=== PATIENT | female | born 1990 | race Caucasian/White ===

== ENCOUNTER → 2016-11-13 15:40 | Inpatient (IN) | payer MEDICAID ==
[2016-11-11 15:16] VITALS: BP 116/85
[2016-11-11] MEDS: D5%-LACTATED RINGERS 1,000 ML IV SCH ×2 (15:34→23:34)
[2016-11-11] MEDS: LACTATED RINGERS 1,000 ML IV SCH ×2 (15:59→23:34)
[2016-11-11 20:42] VITALS: BP 104/55
[2016-11-12] MEDS: OXYTOCIN 30U/ 0.9% NaCL 500ML 500 ML IV SCH ×8 (01:08→11:08)
[2016-11-12 03:10] VITALS: BP 108/57
[2016-11-12] MEDS: OXYcodone/APAP 5/325MG TABLET PO PRN ×3 (06:18→21:00)
[2016-11-12 07:30] VITALS: BP 117/69
[2016-11-12] MEDS: DOCUSATE 100 MG CAPSULE PO PRN ×2 (08:10→21:00)
[2016-11-12] MEDS: PRENATAL VIT/IRON/FA 1 EACH TABLET PO SCH (08:10)
[2016-11-12] MEDS: IBUPROFEN 800 MG TABLET PO PRN ×2 (08:10→16:09)
[2016-11-12 11:30] VITALS: BP 115/73
[2016-11-12 15:30] VITALS: BP 103/58
[2016-11-12 20:00] VITALS: BP 117/62
[2016-11-12 23:35] VITALS: BP 104/56
[~2016-11-13] VITALS: Ht 165.1 cm; Wt 77.7 kg
[2016-11-13] MEDS: OXYcodone/APAP 5/325MG TABLET PO PRN ×2 (01:49→10:59)
[2016-11-13] MEDS: IBUPROFEN 800 MG TABLET PO PRN ×2 (01:50→10:59)
[2016-11-13 06:20] VITALS: BP 102/54
[2016-11-13] MEDS: PRENATAL VIT/IRON/FA 1 EACH TABLET PO SCH (10:59)
[2016-11-13] MEDS: DOCUSATE 100 MG CAPSULE PO PRN (10:59)
[~2016-11-13 15:40] MED LIST: ACETAMINOPHEN 325 MG TABLET PO PRN; DIPH,PERTUSS(ACELL),TET VAC/PF NC IM-VACC PRN; DOCU-30 PO; FENTANYL PF 100 MCG/2ML IV PRN; FENTANYL PF 100 MCG/2ML IVPush ONE; FENTANYL PF 100 MCG/2ML IVPush PRN; FENTANYL/BUPIV./NS/PF 250 ML EPIDCONT ONE; FENTANYL/BUPIV./NS/PF 250 ML EPIDCONT SCH; FERR325T20 PO; IBUP800T PO; IBUPROFEN 600 MG TABLET ONE; IBUPROFEN 600 MG TABLET PO PRN; LACTATED RINGERS 1,000 ML IV SCH; LACTATED RINGERS 1,000 ML IVBOLUS PRN; LIDOCAINE 1%, 20ML ONE; LIDOCAINE/PF 1.5%-EPI 1:200K, 30ML ONE; MAGNESIUM HYDROXIDE 8%, 30ML UDC PO PRN; METHYLERGONOVINE 0.2 MG/ML IM PRN; MISOPROSTOL 200 MCG TABLET ONE; MISOPROSTOL 200 MCG TABLET PR ONE; NEWBORN KIT ONE; ONDANSETRON 2MG/ML, 2ML IV PRN; ONDANSETRON 2MG/ML, 2ML IVPush PRN; OXYC-302 PO; OXYTOCIN 10 UNITS/ML, 1ML IM PRN; OXYTOCIN 30U/ 0.9% NaCL 500ML 500 ML IV ONE; OXYTOCIN 30U/ 0.9% NaCL 500ML 500 ML IV PRN; OXYTOCIN 30U/ 0.9% NaCL 500ML 500 ML ONE; OXYcodone/APAP 5/325MG TABLET PO PRN; TERBUTALINE 1 MG/ML, 1ML IVPush PRN
== END | disposition home or self-care (01) | DRG 775 ==
LOC: UNDOADMIN 01-17 07:33 → LDIP 01-17 07:33 → 2NW 11-12 02:50
PROVIDERS: ADMIT Obstetrics & Gynecology; ATTEND Obstetrics & Gynecology
PROC: 10E0XZZ Delivery of Products of Conception, External Approach (ICD-10-PCS; principal; 2016-11-11)
PROC: 3E0R3CZ (ICD-10-PCS; 2016-11-11)
PROC: 00HU33Z Insertion of Infusion Device into Spinal Canal, Percutaneous Approach (ICD-10-PCS; 2016-11-11)
DX: O48.0 Post-term pregnancy (principal); O34.219 Maternal care for unspecified type scar from previous cesarean delivery; Z3A.40 40 weeks gestation of pregnancy; Z23 Encounter for immunization; Z37.0 Single live birth
CPT/HCPCS: 36415; 85025; 86850; 86900; 90715; J3010; J2590; J7120

== ENCOUNTER 2017-12-01 22:17 | Emergency (ER) | payer BC, MEDICAID ==
[~2017-12-01] VITALS: Ht 165.1 cm; Wt 82.0 kg
[~2017-12-01 22:17] MED LIST changes: -ACETAMINOPHEN 325 MG TABLET PO PRN; -DIPH,PERTUSS(ACELL),TET VAC/PF NC IM-VACC PRN; +DOCU-131 PO; -DOCU-30 PO; -FENTANYL PF 100 MCG/2ML IV PRN; -FENTANYL PF 100 MCG/2ML IVPush ONE; -FENTANYL PF 100 MCG/2ML IVPush PRN; -FENTANYL/BUPIV./NS/PF 250 ML EPIDCONT ONE; -FENTANYL/BUPIV./NS/PF 250 ML EPIDCONT SCH; +FERR325T18 PO; -FERR325T20 PO; +IBUP-1223 PO; -IBUP800T PO; -IBUPROFEN 600 MG TABLET ONE; -IBUPROFEN 600 MG TABLET PO PRN; -LACTATED RINGERS 1,000 ML IV SCH; -LACTATED RINGERS 1,000 ML IVBOLUS PRN; -LIDOCAINE 1%, 20ML ONE; -LIDOCAINE/PF 1.5%-EPI 1:200K, 30ML ONE; -MAGNESIUM HYDROXIDE 8%, 30ML UDC PO PRN; -METHYLERGONOVINE 0.2 MG/ML IM PRN; -MISOPROSTOL 200 MCG TABLET ONE; -MISOPROSTOL 200 MCG TABLET PR ONE; -NEWBORN KIT ONE; -ONDANSETRON 2MG/ML, 2ML IV PRN; -ONDANSETRON 2MG/ML, 2ML IVPush PRN; -OXYTOCIN 10 UNITS/ML, 1ML IM PRN; -OXYTOCIN 30U/ 0.9% NaCL 500ML 500 ML IV ONE; -OXYTOCIN 30U/ 0.9% NaCL 500ML 500 ML IV PRN; -OXYTOCIN 30U/ 0.9% NaCL 500ML 500 ML ONE; -OXYcodone/APAP 5/325MG TABLET PO PRN; -TERBUTALINE 1 MG/ML, 1ML IVPush PRN
[2017-12-01 22:18] VITALS: BP 116/69
[2017-12-01 22:59] LABS: MICROSCOPIC AUTO
[2017-12-01 23:00] LABS: CULTURE INDICATED? YES
[2017-12-01] MEDS ORDERED: PHENAZOPYRIDINE 200 MG TABLET PO ONE (23:00)
[2017-12-01] MEDS ORDERED: PHENAZOPYRIDINE 200 MG TABLET ONE (23:06)
[2017-12-01 23:22] LABS: HCG UR SG 1.028 (1.003-1.030)
== END 2017-12-02 00:05 | disposition home or self-care (01) ==
LOC: ED 23:59
DX: N39.0 Urinary tract infection, site not specified (principal); R31.9 Hematuria, unspecified
CPT/HCPCS: 81001; 81025; 87086; 99284

== ENCOUNTER 2019-07-26 22:43 | Emergency (ER) | payer BC, MEDICAID ==
[~2019-07-26] VITALS: Ht 165.1 cm; Wt 85.9 kg
[2019-07-26 22:51] VITALS: BP 127/65
[2019-07-26] MEDS ORDERED: PHENAZOPYRIDINE 200 MG TABLET ONE (23:22)
[2019-07-26 23:28] LABS: CULTURE INDICATED? YES; MICROSCOPIC INDICATED
--- NOTE | 2019-07-26 23:28 | NUR ---
Pt medicated per emar.
[2019-07-26] MEDS ORDERED: PHENAZOPYRIDINE 200 MG TABLET PO ONE (23:30)
--- NOTE | 2019-07-26 23:32 | NUR ---
Pt here for right flank pain x 2 days. Pt reports that she had a kidney stone before and that this feels alot like it did before. Pt denies trauma. Pt reports some pain with urination. Pt reports no blood in urine. Does not believe to be . UA sent, awaiting further orders.
[2019-07-26] MEDS ORDERED: ACETAMINOPHEN 500 MG TABLET ONE (23:50)
[2019-07-26] MEDS ORDERED: CEFDINIR 300 MG CAPSULE ONE (23:50)
[2019-07-26 23:53] LABS: HCG UR SG 1.016 (1.003-1.030)
[2019-07-27] MEDS ORDERED: ACETAMINOPHEN 500 MG TABLET PO ONE
[2019-07-27] MEDS ORDERED: CEFDINIR 300 MG CAPSULE PO ONE
== END 2019-07-26 23:59 | disposition home or self-care (01) ==
LOC: ED 23:40
DX: N30.00 Acute cystitis without hematuria (principal)
CPT/HCPCS: 81001; 81025; 87077; 87086; 87186; 99284

== ENCOUNTER 2019-12-31 12:22 | Inpatient (IN) | payer MEDICAID ==
[~2019-12-31] VITALS: Ht 165.1 cm; Wt 89.0 kg
[2019-12-31] MEDS ORDERED: PROPOFOL 10 MG/ML, 20ML ONE (12:42)
[2019-12-31] MEDS ORDERED: ROCURONIUM 10MG/ML,5ML ONE (12:42)
[2019-12-31] MEDS ORDERED: CEFAZOLIN 1,000 MG ONE (12:42)
[2019-12-31] MEDS ORDERED: ONDANSETRON 2MG/ML, 2ML ONE ×2 (12:42→12:48)
[2019-12-31] MEDS ORDERED: SUCCINYLCHOLINE 20 MG/ML, 10ML ONE (12:42)
[2019-12-31] MEDS ORDERED: DEXAMETHASONE 4 MG/ML, 1ML ONE (12:42)
[2019-12-31] MEDS ORDERED: MORPHINE SULFATE 4 MG/ML, 1ML ONE ×3 (12:47→14:24)
[2019-12-31] MEDS ORDERED: KETOROLAC 30 MG/1 ML ONE (12:47)
[2019-12-31] MEDS: MORPHINE SULFATE 4 MG/ML, 1ML IVPush PRN ×2 (12:53→13:48)
--- NOTE | 2019-12-31 12:59 | NUR ---
PT AMBULATED TO RESTROOM WITH STEADY GAIT TO PROVIDE URINE SAMPLE. PIV PLACED, LABS DRAWN. LABS AND UA COLLECTED BY [employer]. MEDS ADMIN PER JUL. PT PLACED ON OXYGEN FOR SAFETY. BROTHER AT BEDSIDE. CALL LIGHT IN REACH.
[2019-12-31] MEDS ORDERED: ONDANSETRON 2MG/ML, 2ML IVPush ONE (13:00)
[2019-12-31] MEDS ORDERED: KETOROLAC 30 MG/1 ML IVPush ONE (13:00)
[2019-12-31 13:01] LABS: BASOPHILS # (AUTO) 0.09 x10^3/uL (0-0.1); BASOPHILS % (AUTO) 1 % (0-1); EOSINOPHILS # (AUTO) 0.44 x10^3/uL (0-0.4); EOSINOPHILS % (AUTO) 3 % (1-7); LYMPHOCYTES # (AUTO) 4.88 x10^3/uL (1-3.4); LYMPHOCYTES % (AUTO) 35 % (22-44); MD NO; MEAN CORPUSCULAR HEMOGLOBIN 29.7 pg (27.0-34.8); MONOCYTES # (AUTO) 1.22 x10^3/uL (0.2-0.8); MONOCYTES % (AUTO) 9 % (2-9); NEUTROPHILS # (AUTO) 7.15 x10^3/uL (1.8-6.8); NEUTROPHILS % (AUTO) 52 % (42-75); PLATELET COUNT 258 x10^3/uL (130-400); RED BLOOD COUNT 4.99 x10^6/uL (3.82-5.3); RED CELL DISTRIBUTION WIDTH 13.1 % (9.6-15.2)
[2019-12-31 13:05] LABS: MICROSCOPIC INDICATED
[2019-12-31 13:14] LABS: ALBUMIN 3.6 g/dL (3.4-5.0); ANION GAP 5 mmol/L (5-15); CALCIUM 8.2 mg/dL (8.5-10.1); CHLORIDE 109 mmol/L (98-107)
--- NOTE | 2019-12-31 13:27 | NUR ---
PT IN CT
--- NOTE | 2019-12-31 13:49 | NUR ---
PT C/O OF 12/25 PAIN. SECOND DOSE PAIN CANE WEIGHER HELPER PER JUL.
--- NOTE | 2019-12-31 14:04 | NUR ---
ALL RESULTS ARE BACK AT THIS TIME. CHART UP FOR RECHECK.
--- NOTE | 2019-12-31 14:27 | NUR ---
URINE COLLECTED VIA STRAIGHT CATH AND TAKEN TO LAB. PAIN MERCHANDISING ASSISTANT PER JUL. PT RESTING ON GURNEY. NADN. BROTHER AT BEDSIDE.
[2019-12-31] MEDS ORDERED: morphine SULFATE 10 MG/ML, 1ML IVPush ONE (14:30)
[2019-12-31 14:56] LABS: MICROSCOPIC INDICATED
--- NOTE | 2019-12-31 14:56 | NUR ---
ALL RESULTS ARE BACK AT THIS TIME. CHART UP FOR RECHECK.
--- NOTE | 2019-12-31 15:03 | NUR ---
MD AT BEDSIDE TO UPDATE PT ON POC.
--- NOTE | 2019-12-31 15:15 | NUR ---
HOSPITALIST AT BEDSIDE.
[2019-12-31] MEDS ORDERED: CEFTRIAXONE PMX 1GM/50ML 50 ML ONE (15:16)
--- NOTE | 2019-12-31 15:27 | NUR ---
IV ABX AND IVF ADMIN PER MAR. PT RESTING ON REFUGIO. VIDHI. PT AWARE TO BE NPO UNTIL UROLOGY CONSULTED.
[2019-12-31] MEDS ORDERED: ACETAMINOPHEN 325 MG TABLET PO PRN ×2 (15:30→19:30)
[2019-12-31] MEDS ORDERED: SODIUM CHLORIDE 0.9% 1,000 ML IV SCH ×2 (15:30→16:00)
[2019-12-31] MEDS ORDERED: CEFTRIAXONE PMX 1GM/50ML 50 ML IV ONE (15:30)
[2019-12-31] MEDS ORDERED: TAMSULOSIN 0.4 MG CAP.ER.24H PO ONE (15:30)
[2019-12-31] MEDS ORDERED: MORPHINE SULFATE 4 MG/ML, 1ML IVPush PRN ×2 (15:30→19:30)
[2019-12-31] MEDS ORDERED: morphine SULFATE 10 MG/ML, 1ML IVPush PRN (15:30)
--- NOTE | 2019-12-31 15:45 | NUR ---
LEFT MESSAGE WITH HOSPITALIST IF STILL WANTS BLOOD CX SINCE ABX ALREADY GIVEN. PENDING RESPONSE.
[2019-12-31] MEDS ORDERED: TAMSULOSIN 0.4 MG CAP.ER.24H ONE (16:33)
--- NOTE | 2019-12-31 17:11 | NUR ---
REPORT GIVEN TO NATALYA CHANEL IN OR.
[2019-12-31] MEDS ORDERED: MIDAZOLAM 1 MG/ML, 2ML ONE (17:25)
[2019-12-31] MEDS ORDERED: KETOROLAC 30 MG/1 ML IV PRN (18:00)
[2019-12-31] MEDS ORDERED: OXYcodone 5 MG/5 ML ORAL.SOL UDC PO PRN (18:00)
[2019-12-31] MEDS ORDERED: FENTANYL PF 100 MCG/2ML IV PRN (18:00)
[2019-12-31] MEDS ORDERED: DIAZEPAM 5 MG/ML, 2ML IV PRN ×2 (18:00)
[2019-12-31] MEDS ORDERED: ALBUTEROL SULFATE 2.5 MG/3 ML NPPB PRN (18:00)
[2019-12-31] MEDS ORDERED: PROMETHAZINE 25 MG/ML, 1ML IV PRN (18:00)
[2019-12-31] MEDS ORDERED: MEPERIDINE/PF 25MG/0.5ML IVPush PRN (18:00)
[2019-12-31] MEDS ORDERED: HYDROmorphone 1 MG/ML, 1ML INJ IV PRN (18:00)
[2019-12-31] MEDS ORDERED: ONDANSETRON 2MG/ML, 2ML IVPush PRN ×2 (18:00→19:30)
[2019-12-31] MEDS ORDERED: LABETALOL 5MG/ML, 20ML IV PRN (18:00)
[2019-12-31] MEDS ORDERED: hydrALAzine 20 MG/ML, 1ML IV PRN (18:00)
[2019-12-31] MEDS ORDERED: OXYcodone 5 MG/5 ML ORAL.SOL UDC ONE (18:37)
[2019-12-31 19:00] VITALS: BP 112/55
[2019-12-31] MEDS: SODIUM CHLORIDE 0.9% 1,000 ML IV SCH (19:30)
[2019-12-31] MEDS ORDERED: KETOROLAC 10MG TABLET PO PRN (19:30)
[2019-12-31 20:00] VITALS: BP 112/55
[2019-12-31] MEDS: PHENAZOPYRIDINE 200 MG TABLET PO SCH (21:00)
[2019-12-31] MEDS ORDERED: TEMAZEPAM 15 MG CAPSULE PO PRN (21:00)
[2019-12-31] MEDS: CEFTRIAXONE PMX 2GM/50ML 50 ML IVPB SCH (22:18)
[2020-01-01 00:15] VITALS: BP 115/58
[2020-01-01 04:30] VITALS: BP 110/61
[2020-01-01] MEDS: HYDROcodone/APAP 5/325 TABLET PO PRN ×2 (04:35→12:31)
[2020-01-01] MEDS: SODIUM CHLORIDE 0.9% 1,000 ML IV SCH (04:39)
[2020-01-01 05:06] LABS: BASOPHILS # (AUTO) 0.05 x10^3/uL (0-0.1); BASOPHILS % (AUTO) 0 % (0-1); EOSINOPHILS # (AUTO) 0.21 x10^3/uL (0-0.4); EOSINOPHILS % (AUTO) 1 % (1-7); LYMPHOCYTES # (AUTO) 2.15 x10^3/uL (1-3.4); LYMPHOCYTES % (AUTO) 14 % (22-44); MD NO; MEAN CORPUSCULAR HEMOGLOBIN 29.9 pg (27.0-34.8); MEAN CORPUSCULAR HGB CONC 32.8 g/dL (32.4-35.8); MEAN PLATELET VOLUME 9.1 fL (7.4-10.4); MONOCYTES # (AUTO) 0.75 x10^3/uL (0.2-0.8); MONOCYTES % (AUTO) 5 % (2-9); NEUTROPHILS # (AUTO) 12.69 x10^3/uL (1.8-6.8); NEUTROPHILS % (AUTO) 80 % (42-75); PLATELET COUNT 227 x10^3/uL (130-400); RED BLOOD COUNT 4.63 x10^6/uL (3.82-5.3); RED CELL DISTRIBUTION WIDTH 13.4 % (9.6-15.2)
[2020-01-01 05:13] LABS: ANION GAP 6 mmol/L (5-15); CALCIUM 7.7 mg/dL (8.5-10.1); CHLORIDE 111 mmol/L (98-107); CREATININE 0.71 mg/dL (0.55-1.02)
[2020-01-01 07:15] VITALS: BP 100/69
[2020-01-01] MEDS ORDERED: CEFTRIAXONE PMX 2GM/50ML 50 ML IV SCH (08:00)
[2020-01-01] MEDS: PHENAZOPYRIDINE 200 MG TABLET PO SCH ×3 (08:03→21:00)
[2020-01-01 13:27] VITALS: BP 98/59
[2020-01-01 19:34] VITALS: BP 108/71
[2020-01-01] MEDS: CEFTRIAXONE PMX 2GM/50ML 50 ML IVPB SCH (19:48)
[2020-01-02 00:33] VITALS: BP 96/61
[2020-01-02] MEDS: PHENAZOPYRIDINE 200 MG TABLET PO SCH ×2 (03:23→16:25)
[2020-01-02 05:53] LABS: CHLORIDE 109 mmol/L (98-107)
[2020-01-02 05:58] LABS: ANION GAP 7 mmol/L (5-15); CALCIUM 8.4 mg/dL (8.5-10.1); CREATININE 0.77 mg/dL (0.55-1.02)
[2020-01-02 06:18] LABS: BASOPHILS # (AUTO) 0.03 x10^3/uL (0-0.1); BASOPHILS % (AUTO) 0 % (0-1); EOSINOPHILS # (AUTO) 0.28 x10^3/uL (0-0.4); EOSINOPHILS % (AUTO) 3 % (1-7); LYMPHOCYTES # (AUTO) 2.72 x10^3/uL (1-3.4); LYMPHOCYTES % (AUTO) 25 % (22-44); MD NO; MEAN CORPUSCULAR HGB CONC 32.9 g/dL (32.4-35.8); MEAN CORPUSCULAR VOLUME 91.1 fL (80-100); MEAN PLATELET VOLUME 9.3 fL (7.4-10.4); MONOCYTES # (AUTO) 0.58 x10^3/uL (0.2-0.8); MONOCYTES % (AUTO) 5 % (2-9); NEUTROPHILS # (AUTO) 7.43 x10^3/uL (1.8-6.8); NEUTROPHILS % (AUTO) 67 % (42-75); PLATELET COUNT 225 x10^3/uL (130-400); RED BLOOD COUNT 4.54 x10^6/uL (3.82-5.3); RED CELL DISTRIBUTION WIDTH 13.4 % (9.6-15.2)
[2020-01-02 07:33] VITALS: BP 103/67
[2020-01-02] MEDS ORDERED: CIPR500T87 PO (12:39)
[2020-01-02 13:27] VITALS: BP 100/60
[2020-01-02 17:00] VITALS: BP 120/76
== END 2020-01-02 17:00 | disposition home or self-care (01) | DRG 661 ==
LOC: ED 13:44 → EDIP 15:05 → 4NE 18:52
PROVIDERS: ADMIT Internal Medicine; ATTEND Internal Medicine Infectious Disease
PROC: 0T9B70Z Drainage of Bladder with Drainage Device, Via Natural or Artificial Opening (ICD-10-PCS; 2019-12-31)
PROC: 0T778DZ Dilation of Left Ureter with Intraluminal Device, Via Natural or Artificial Opening Endoscopic (ICD-10-PCS; principal; 2019-12-31 17:00)
DX: N13.6 Pyonephrosis (principal); F17.200 Nicotine dependence, unspecified, uncomplicated; N17.9 Acute kidney failure, unspecified; B96.4 Proteus (mirabilis) (morganii) as the cause of diseases classified elsewhere; Z98.51 Tubal ligation status; Z87.440 Personal history of urinary (tract) infections; Z87.442 Personal history of urinary calculi
CPT/HCPCS: 36415; 74018; 74176; 76000; 80048; 81001; 82040; 84703; 85025; 87040; 87077; 87086; 87186; 87635; 96365; 96375; 96376; G0378; J0690; J0696; J1100; J1885; J2250; J2405; J2704; C2617; J0330; J2270; J7030

== ENCOUNTER 2020-01-05 15:11 | Inpatient (IN) | payer MEDICAID ==
[~2020-01-05] VITALS: Ht 165.1 cm; Wt 86.3 kg
[~2020-01-05 15:11] MED LIST changes: +CIPR500T87 PO
--- NOTE | 2020-01-05 15:54 | NUR ---
CASER UP: PT TO ROOM FROM LOBBY VIA W/C
[2020-01-05] MEDS ORDERED: MORPHINE SULFATE 4 MG/ML, 1ML ONE (16:15)
[2020-01-05] MEDS ORDERED: ONDANSETRON 2MG/ML, 2ML ONE (16:16)
[2020-01-05 16:22] LABS: MICROSCOPIC INDICATED
[2020-01-05 16:23] LABS: HCG UR SG 1.022 (1.003-1.030)
--- NOTE | 2020-01-05 16:29 | NUR ---
XRAY COMPLETE. PIV PLACED, LABS DRAWN AND COLLECTED BY HEARING AID DISPENSER. MEDS ADMIN PER JUL. BROTHER AT BEDSIDE. US AT BEDSIDE.
[2020-01-05] MEDS ORDERED: MORPHINE SULFATE 4 MG/ML, 1ML IVPush PRN (16:30)
[2020-01-05] MEDS ORDERED: ONDANSETRON 2MG/ML, 2ML IVPush ONE (16:30)
[2020-01-05] MEDS ORDERED: SODIUM CHLORIDE FLUSH 10ML SYR IVF ONE (16:30)
[2020-01-05 16:46] LABS: ALBUMIN 4.3 g/dL (3.4-5.0); ANION GAP 7 mmol/L (5-15); CHLORIDE 107 mmol/L (98-107); CREATININE 0.87 mg/dL (0.55-1.02)
[2020-01-05 16:56] LABS: BASOPHILS # (AUTO) 0.06 x10^3/uL (0-0.1); BASOPHILS % (AUTO) 1 % (0-1); EOSINOPHILS # (AUTO) 0.39 x10^3/uL (0-0.4); EOSINOPHILS % (AUTO) 3 % (1-7); LYMPHOCYTES # (AUTO) 3.43 x10^3/uL (1-3.4); LYMPHOCYTES % (AUTO) 29 % (22-44); MD NO; MEAN CORPUSCULAR HEMOGLOBIN 30.2 pg (27.0-34.8); MEAN CORPUSCULAR HGB CONC 33.3 g/dL (32.4-35.8); MEAN CORPUSCULAR VOLUME 90.6 fL (80-100); MONOCYTES # (AUTO) 0.94 x10^3/uL (0.2-0.8); MONOCYTES % (AUTO) 8 % (2-9); NEUTROPHILS # (AUTO) 7.13 x10^3/uL (1.8-6.8); NEUTROPHILS % (AUTO) 60 % (42-75); PLATELET COUNT 315 x10^3/uL (130-400); RED CELL DISTRIBUTION WIDTH 13.3 % (9.6-15.2)
--- NOTE | 2020-01-05 16:56 | NUR ---
SECOND URINE SAMPLE COLLECTED VIA STRAIGHT CATH AND TAKEN TO LAB.
[2020-01-05 17:05] LABS: MICROSCOPIC INDICATED
--- NOTE | 2020-01-05 17:10 | NUR ---
ALL RESULTS ARE BACK AT THIS TIME. CHART UP FOR RECHECK.
[2020-01-05] MEDS ORDERED: CEFTRIAXONE PMX 1GM/50ML 50 ML IV ONE (18:00)
[2020-01-05] MEDS ORDERED: CEFTRIAXONE PMX 1GM/50ML 50 ML ONE (18:04)
--- NOTE | 2020-01-05 18:11 | NUR ---
BREAK RN: ROCEPHIN STARTED. VS UPDATED AND WNL. PT RESTING WITH NO COMPLAINTS.
[2020-01-05] MEDS: CEFTRIAXONE PMX 1GM/50ML 50 ML IV SCH (19:30)
[2020-01-05] MEDS ORDERED: ACETAMINOPHEN 325 MG TABLET PO PRN (19:30)
[2020-01-05] MEDS ORDERED: KETOROLAC 30 MG/1 ML IV PRN (19:30)
[2020-01-05] MEDS ORDERED: POLYETHYLENE GLYCOL 17 GM PACKET PO PRN (19:30)
[2020-01-05] MEDS ORDERED: BISACODYL 10 MG SUPP PR PRN (19:30)
[2020-01-05] MEDS ORDERED: ONDANSETRON ODT 4 MG PO PRN (19:30)
--- NOTE | 2020-01-05 19:46 | NUR ---
REPORT GIVEN TO CONNOR CHANEL.
[2020-01-05] MEDS: SODIUM CHLORIDE 0.9% 1,000 ML IV SCH (21:43)
[2020-01-05 21:47] VITALS: BP 145/79
[2020-01-06 03:25] VITALS: BP 101/54
[2020-01-06 05:18] LABS: BASOPHILS # (AUTO) 0.06 x10^3/uL (0-0.1); BASOPHILS % (AUTO) 1 % (0-1); EOSINOPHILS # (AUTO) 0.47 x10^3/uL (0-0.4); EOSINOPHILS % (AUTO) 5 % (1-7); LYMPHOCYTES # (AUTO) 2.73 x10^3/uL (1-3.4); LYMPHOCYTES % (AUTO) 28 % (22-44); MD NO; MEAN CORPUSCULAR HEMOGLOBIN 30.2 pg (27.0-34.8); MEAN CORPUSCULAR HGB CONC 33.2 g/dL (32.4-35.8); MEAN PLATELET VOLUME 8.6 fL (7.4-10.4); MONOCYTES # (AUTO) 0.88 x10^3/uL (0.2-0.8); MONOCYTES % (AUTO) 9 % (2-9); NEUTROPHILS # (AUTO) 5.62 x10^3/uL (1.8-6.8); NEUTROPHILS % (AUTO) 58 % (42-75); PLATELET COUNT 296 x10^3/uL (130-400); RED BLOOD COUNT 4.87 x10^6/uL (3.82-5.3); RED CELL DISTRIBUTION WIDTH 13.4 % (9.6-15.2)
[2020-01-06 05:27] LABS: ANION GAP 5 mmol/L (5-15); CALCIUM 8.5 mg/dL (8.5-10.1); CHLORIDE 108 mmol/L (98-107); CREATININE 0.95 mg/dL (0.55-1.02)
[2020-01-06 07:51] VITALS: BP 97/69
[2020-01-06] MEDS: SENNA/DOCUSATE TABLET PO SCH (09:00)
[2020-01-06] MEDS: SODIUM CHLORIDE 0.9% 1,000 ML IV SCH (09:22)
[2020-01-06] MEDS ORDERED: OXYBUTYNIN CHLORIDE 5 MG TABLET PO PRN (11:30)
[2020-01-06 13:10] VITALS: BP 105/63
[2020-01-06 18:57] VITALS: BP 115/73
[2020-01-06] MEDS: CEFTRIAXONE PMX 1GM/50ML 50 ML IV SCH (19:57)
[2020-01-07 01:35] VITALS: BP 109/71
[2020-01-07] MEDS ORDERED: TAMS-11 PO (07:19)
[2020-01-07] MEDS ORDERED: OXYB5TAB10 PO (07:19)
[2020-01-07] MEDS ORDERED: CIPR500T87 PO (07:19)
[2020-01-07 07:20] VITALS: BP 108/70
[2020-01-07] MEDS: SENNA/DOCUSATE TABLET PO SCH (08:37)
[2020-01-07] MEDS ORDERED: TAMSULOSIN 0.4 MG CAP.ER.24H PO SCH (09:00)
[2020-01-09] MEDS ORDERED: OXYB5TAB10 PO (16:09)
[2020-01-09] MEDS ORDERED: TAMS-11 PO (16:09)
[2020-01-09] MEDS ORDERED: CIPR500T3 PO (16:09)
== END 2020-01-07 12:27 | disposition home or self-care (01) | DRG 690 ==
LOC: ED 16:02 → EDIP 18:34 → 3N 21:05
PROVIDERS: ADMIT Family Medicine; ATTEND Hospitalist
PROC: 0T9B30Z Drainage of Bladder with Drainage Device, Percutaneous Approach (ICD-10-PCS; principal; 2020-01-05)
DX: N13.6 Pyonephrosis (principal); F17.210 Nicotine dependence, cigarettes, uncomplicated; N32.89 Other specified disorders of bladder; Z87.442 Personal history of urinary calculi; B96.4 Proteus (mirabilis) (morganii) as the cause of diseases classified elsewhere; Z98.51 Tubal ligation status; Z98.891 History of uterine scar from previous surgery; Z84.1 Family history of disorders of kidney and ureter
CPT/HCPCS: 36415; 74018; 76770; 80048; 81001; 81025; 82040; 83605; 85025; 87040; 87086; G0378; J0696; J2405; J2270; J7030

== ENCOUNTER 2020-01-10 20:55 | Inpatient (IN) | payer OTHER, MEDICAID ==
[~2020-01-10] VITALS: Ht 165.1 cm; Wt 83.7 kg
[~2020-01-10 20:55] MED LIST changes: +CIPR500T3 PO; +OXYB5TAB10 PO; +TAMS-11 PO
[2020-01-10] MEDS ORDERED: SODIUM CHLORIDE FLUSH 10ML SYR IVF ONE (21:30)
[2020-01-10 22:07] LABS: BASOPHILS # (AUTO) 0.07 x10^3/uL (0-0.1); BASOPHILS % (AUTO) 1 % (0-1); EOSINOPHILS # (AUTO) 0.57 x10^3/uL (0-0.4); EOSINOPHILS % (AUTO) 5 % (1-7); LYMPHOCYTES # (AUTO) 4.04 x10^3/uL (1-3.4); LYMPHOCYTES % (AUTO) 37 % (22-44); MD NO; MEAN CORPUSCULAR HGB CONC 32.9 g/dL (32.4-35.8); MEAN CORPUSCULAR VOLUME 91.1 fL (80-100); MEAN PLATELET VOLUME 8.6 fL (7.4-10.4); MONOCYTES # (AUTO) 0.91 x10^3/uL (0.2-0.8); MONOCYTES % (AUTO) 8 % (2-9); NEUTROPHILS # (AUTO) 5.28 x10^3/uL (1.8-6.8); NEUTROPHILS % (AUTO) 49 % (42-75); PLATELET COUNT 318 x10^3/uL (130-400); RED CELL DISTRIBUTION WIDTH 12.9 % (9.6-15.2)
[2020-01-10 22:20] LABS: ALANINE AMINOTRANSFERASE 18 U/L (12-78); ALBUMIN 3.5 g/dL (3.4-5.0); ANION GAP 6 mmol/L (5-15); CALCIUM 9.1 mg/dL (8.5-10.1); CHLORIDE 109 mmol/L (98-107)
[2020-01-10 22:22] LABS: ALKALINE PHOSPHATASE 73 U/L (45-117); BILIRUBIN,TOTAL 0.2 mg/dL (0.2-1.0); TOTAL PROTEIN 7.5 g/dL (6.4-8.2)
--- NOTE | 2020-01-10 22:32 | NUR ---
pt to room from lobby
--- NOTE | 2020-01-10 22:45 | NUR ---
Pt arrives to ed for continuing left flank pain with no relief. Pt has a stent and reports she suppose to have surgery tomorrow but she could not stand the pain. Pt reports she has noted her urine getting more dark. Pt has a ongoing diagnosis of kidney stones. Pt resting in bed. vss
[2020-01-10] MEDS ORDERED: KETOROLAC 30 MG/1 ML ONE (23:15)
--- NOTE | 2020-01-10 23:19 | NUR ---
Pt medicated for pain.
[2020-01-10 23:21] LABS: HCG UR SG 1.016 (1.003-1.030)
[2020-01-10 23:26] LABS: MICROSCOPIC INDICATED
[2020-01-10] MEDS ORDERED: KETOROLAC 30 MG/1 ML IVPush ONE (23:30)
--- NOTE | 2020-01-10 23:37 | NUR ---
Pt reports light pain relief with toradol shot
--- NOTE | 2020-01-10 23:54 | NUR ---
Bedsider report to Mignon CHANEL, RN informed pt could benefit from more pain control.
--- NOTE | 2020-01-10 23:57 | NUR ---
Report received from YANIQUE López. This RN to assume care.
[2020-01-11 00:53] VITALS: BP 110/69
[2020-01-11 00:54] VITALS: BP 110/69
--- NOTE | 2020-01-11 01:02 | NUR ---
Report given to YANIQUE Bhatia. Patient transferred to room [id number].
[2020-01-11] MEDS ORDERED: DOCUSATE 100 MG CAPSULE PO PRN (01:30)
[2020-01-11] MEDS ORDERED: morphine SULFATE 10 MG/ML, 1ML IVPush PRN (01:30)
[2020-01-11] MEDS ORDERED: ONDANSETRON ODT 4 MG PO PRN (01:30)
[2020-01-11] MEDS ORDERED: ACETAMINOPHEN 325 MG TABLET PO PRN ×2 (01:30→09:00)
[2020-01-11] MEDS ORDERED: POLYETHYLENE GLYCOL 17 GM PACKET PO PRN (01:30)
[2020-01-11] MEDS ORDERED: PROMETHAZINE 25 MG/ML, 1ML IM PRN (01:30)
[2020-01-11] MEDS ORDERED: BISACODYL 10 MG SUPP PR PRN (01:30)
[2020-01-11] MEDS ORDERED: hydrALAzine 20 MG/ML, 1ML IVPush PRN (01:30)
[2020-01-11] MEDS ORDERED: ONDANSETRON 2MG/ML, 2ML IVPush PRN ×2 (01:30→09:00)
[2020-01-11] MEDS ORDERED: OXYBUTYNIN CHLORIDE 5 MG TABLET PO PRN (02:00)
[2020-01-11 02:32] LABS: FREE T4 (FREE THYROXINE) 1.03 ng/dL (0.76-1.46)
[2020-01-11] MEDS: CEFTRIAXONE PMX 2GM/50ML 50 ML IV SCH (02:49)
[2020-01-11] MEDS: D5%-0.45% NACL 1,000 ML IV SCH ×2 (02:49→15:00)
[2020-01-11 07:02] VITALS: BP 103/66
[2020-01-11] MEDS ORDERED: DIAZEPAM 5 MG/ML, 2ML IVPush PRN (09:00)
[2020-01-11] MEDS ORDERED: EPHEDRINE 50 MG/ML, 1ML IVPush PRN (09:00)
[2020-01-11] MEDS ORDERED: FENTANYL PF 100 MCG/2ML IV PRN (09:00)
[2020-01-11] MEDS ORDERED: TAMSULOSIN 0.4 MG CAP.ER.24H PO SCH (09:00)
[2020-01-11] MEDS ORDERED: METOCLOPRAMIDE 5 MG/ML, 2ML IVPush PRN (09:00)
[2020-01-11] MEDS ORDERED: LORazepam 2 MG/ML, 1ML IVPush PRN (09:00)
[2020-01-11] MEDS ORDERED: EPHEDRINE 50 MG/ML, 1ML IM PRN (09:00)
[2020-01-11] MEDS ORDERED: DIPHENHYDRAMINE 50 MG/ML, 1ML IVPush PRN (09:00)
[2020-01-11] MEDS ORDERED: MIDAZOLAM 1 MG/ML, 2ML IV PRN (09:00)
[2020-01-11] MEDS ORDERED: HYDROmorphone 1 MG/ML, 1ML INJ IVPush PRN (09:00)
[2020-01-11] MEDS ORDERED: MEPERIDINE/PF 25MG/0.5ML IVPush PRN (09:00)
[2020-01-11] MEDS ORDERED: OXYcodone 5 MG/5 ML ORAL.SOL UDC PO PRN (09:00)
[2020-01-11] MEDS ORDERED: hydrALAzine 20 MG/ML, 1ML IV PRN (09:00)
[2020-01-11] MEDS ORDERED: LABETALOL 5MG/ML, 20ML IV PRN (09:00)
[2020-01-11] MEDS ORDERED: HYDROcodone/APAP 7.5-325MG/15ML UDC PO PRN (09:00)
[2020-01-11] MEDS ORDERED: KETOROLAC 30 MG/1 ML IVPush PRN (09:00)
[2020-01-11] MEDS ORDERED: HALOPERIDOL 5 MG/ML IV PRN (09:00)
[2020-01-11] MEDS ORDERED: ALBUTEROL/IPRATROPIUM 2.5MG/0.5MG, 3 ML NPPB PRN (09:00)
[2020-01-11] MEDS ORDERED: METHOCARBAMOL 1,000 MG in DEXTROSE 5% 100 ML IV PRN (09:00)
[2020-01-11] MEDS ORDERED: CHLORHEXIDINE 15 ML UDC ONE ×2 (10:01→10:22)
[2020-01-11] MEDS ORDERED: OPIUM/BELLADONNA SUPP.RECT 16.2-60 MG ONE (10:20)
[2020-01-11] MEDS ORDERED: SCOPOLAMINE 1MG PATCH TD ONE (10:22)
[2020-01-11] MEDS ORDERED: FENTANYL PF 250 MCG/5ML ONE (10:41)
[2020-01-11] MEDS ORDERED: CEFAZOLIN PMX 2GM/100ML ONE (10:41)
[2020-01-11] MEDS ORDERED: LIDOCAINE 2%, 10ML ONE (10:41)
[2020-01-11] MEDS ORDERED: MIDAZOLAM 1 MG/ML, 5ML ONE (10:41)
[2020-01-11] MEDS ORDERED: PROPOFOL 10 MG/ML, 100ML IV ONE (10:41)
[2020-01-11] MEDS ORDERED: KETOROLAC 30 MG/1 ML ONE (11:52)
[2020-01-11] MEDS: SODIUM CHLORIDE 0.9% 1,000 ML IV SCH (13:30)
[2020-01-11 14:11] VITALS: BP 116/73
[2020-01-11] MEDS: PHENAZOPYRIDINE 200 MG TABLET PO SCH ×2 (16:11→22:34)
[2020-01-11] MEDS: OXYcodone IR 5MG TABLET PO PRN (16:32)
[2020-01-11 21:01] VITALS: BP 109/56
[2020-01-11] MEDS: CIPROFLOXACIN 500 MG TABLET PO SCH (22:34)
[2020-01-12] MEDS: D5%-0.45% NACL 1,000 ML IV SCH (01:23)
[2020-01-12 01:40] VITALS: BP 110/63
[2020-01-12] MEDS: CEFTRIAXONE PMX 2GM/50ML 50 ML IV SCH (02:06)
[2020-01-12] MEDS: SODIUM CHLORIDE 0.9% 1,000 ML IV SCH (02:50)
[2020-01-12 03:47] VITALS: BP 120/80
[2020-01-12 05:47] LABS: MEAN CORPUSCULAR HEMOGLOBIN 29.9 pg (27.0-34.8); MEAN CORPUSCULAR VOLUME 90.7 fL (80-100); PLATELET COUNT 293 x10^3/uL (130-400); RED BLOOD COUNT 4.74 x10^6/uL (3.82-5.3); RED CELL DISTRIBUTION WIDTH 13.1 % (9.6-15.2)
[2020-01-12 05:55] LABS: ALANINE AMINOTRANSFERASE 16 U/L (12-78); ALBUMIN 3.1 g/dL (3.4-5.0); ANION GAP 8 mmol/L (5-15); CALCIUM 8.3 mg/dL (8.5-10.1); CHLORIDE 108 mmol/L (98-107); CHOLESTEROL, TOTAL 183 mg/dL (140-239); CREATININE 0.96 mg/dL (0.55-1.02)
[2020-01-12 05:58] LABS: ALKALINE PHOSPHATASE 69 U/L (45-117); BILIRUBIN,TOTAL 0.2 mg/dL (0.2-1.0); CHOL/HDL RATIO 3.9; HDL CHOL % 26 % (28-40); HDL CHOLESTEROL (DIRECT) 47 mg/dL (40-60); LDL CHOLESTEROL,CALCULATED 108 mg/dL (54-169); LDL/HDL RATIO 2.3 (0.5-3.0); TRIGLYCERIDES 138 mg/dL (50-200); VLDL CHOLESTEROL 28 mg/dL (0-25)
[2020-01-12 06:08] LABS: BASOPHILS % (AUTO) 1 % (0-1); EOSINOPHILS # (AUTO) 0.03 x10^3/uL (0-0.4); EOSINOPHILS % (AUTO) 0 % (1-7); LYMPHOCYTES # (AUTO) 1.91 x10^3/uL (1-3.4); LYMPHOCYTES % (AUTO) 10 % (22-44); MD SCAN; MONOCYTES # (AUTO) 0.52 x10^3/uL (0.2-0.8); MONOCYTES % (AUTO) 3 % (2-9); NEUTROPHILS # (AUTO) 17.58 x10^3/uL (1.8-6.8); NEUTROPHILS % (AUTO) 87 % (42-75)
[2020-01-12 07:34] VITALS: BP 103/53
[2020-01-12] MEDS: PHENAZOPYRIDINE 200 MG TABLET PO SCH (09:20)
[2020-01-12] MEDS: CIPROFLOXACIN 500 MG TABLET PO SCH (09:20)
[2020-01-12] MEDS ORDERED: PHEN-583 PO (09:26)
[2020-01-12] MEDS ORDERED: CIPR500T3 PO (09:26)
[2020-01-12 10:46] VITALS: BP 108/66
[2020-01-12] MEDS: OXYcodone IR 5MG TABLET PO PRN (10:51)
== END 2020-01-12 11:25 | disposition home or self-care (01) | DRG 669 ==
LOC: ED 01-11 00:09 → EDIP 01-11 00:26 → 4NE 01-11 00:48
PROVIDERS: ADMIT Internal Medicine; ATTEND Internal Medicine
PROC: 0TC78ZZ Extirpation of Matter from Left Ureter, Via Natural or Artificial Opening Endoscopic (ICD-10-PCS; principal; 2020-01-11 10:30)
DX: N20.2 Calculus of kidney with calculus of ureter (principal); N30.01 Acute cystitis with hematuria; Z87.440 Personal history of urinary (tract) infections; Z87.891 Personal history of nicotine dependence; Z98.51 Tubal ligation status
CPT/HCPCS: 36415; 74018; 76000; J3490; 80053; 80061; 81001; 81025; 82360; 83036; 83735; 84439; 84443; 85025; 87086; 87635; 88300; G0378; J0696; J1100; J1885; J2001; J2250; J2405; J2704; J3010; J0690

== ENCOUNTER 2020-03-16 01:19 | Emergency (ER) | payer OTHER, MEDICAID ==
[~2020-03-16] VITALS: Ht 165.1 cm; Wt 83.6 kg
[~2020-03-16 01:19] MED LIST changes: +PHEN-583 PO
--- NOTE | 2020-03-16 01:55 | NUR ---
PT HERE FOR "KIDNEY STONE ON MY RIGHT SIDE". RATES FLANK PAIN 11/24. STATES SHE WAS HERE IN DECEMBER FOR KIDNEY STONE ON THE LEFT SIDE. IV STARTED. CALL LIGHT WITHIN REACH.
[2020-03-16] MEDS ORDERED: MORPHINE SULFATE 4 MG/ML, 1ML IVPush PRN (02:00)
[2020-03-16] MEDS ORDERED: KETOROLAC 30 MG/1 ML IVPush ONE (02:00)
[2020-03-16] MEDS ORDERED: ONDANSETRON 2MG/ML, 2ML IVPush ONE (02:00)
[2020-03-16] MEDS ORDERED: SODIUM CHLORIDE FLUSH 10ML SYR IVF ONE (02:00)
--- NOTE | 2020-03-16 02:03 | NUR ---
PT IN XRAY
[2020-03-16] MEDS ORDERED: MORPHINE SULFATE 4 MG/ML, 1ML ONE (02:07)
[2020-03-16] MEDS ORDERED: KETOROLAC 30 MG/1 ML ONE (02:07)
[2020-03-16 02:12] LABS: BASOPHILS % (AUTO) 1 % (0-1); EOSINOPHILS % (AUTO) 1 % (1-7); LYMPHOCYTES % (AUTO) 35 % (22-44); MEAN CORPUSCULAR HEMOGLOBIN 29.9 pg (27.0-34.8); MEAN CORPUSCULAR HGB CONC 33.2 g/dL (32.4-35.8); MEAN PLATELET VOLUME 8.9 fL (7.4-10.4); MONOCYTES % (AUTO) 8 % (2-9); NEUTROPHILS % (AUTO) 56 % (42-75); PLATELET COUNT 254 x10^3/uL (130-400); RED CELL DISTRIBUTION WIDTH 13.1 % (9.6-15.2)
[2020-03-16 02:13] LABS: MD NO
[2020-03-16 02:20] LABS: ALANINE AMINOTRANSFERASE 25 U/L (12-78); ALBUMIN 3.7 g/dL (3.4-5.0); ANION GAP 5 mmol/L (5-15); CALCIUM 8.5 mg/dL (8.5-10.1); CHLORIDE 108 mmol/L (98-107); CREATININE 0.86 mg/dL (0.55-1.02)
[2020-03-16 02:25] LABS: ALKALINE PHOSPHATASE 71 U/L (45-117); BILIRUBIN,TOTAL 0.3 mg/dL (0.2-1.0); TOTAL PROTEIN 7.6 g/dL (6.4-8.2)
--- NOTE | 2020-03-16 03:00 | NUR ---
PT RESTING IN RWHEATCROFT, DENIES NEEDS
[2020-03-16 03:01] LABS: MICROSCOPIC AUTO
[2020-03-16 04:36] VITALS: BP 106/56
== END 2020-03-16 04:48 | disposition home or self-care (01) ==
LOC: ED 01:47
DX: N30.01 Acute cystitis with hematuria (principal); N20.0 Calculus of kidney; R10.9 Unspecified abdominal pain; M54.9 Dorsalgia, unspecified; Z87.891 Personal history of nicotine dependence; Z98.51 Tubal ligation status
CPT/HCPCS: 36415; 74018; 74176; 80053; 81001; 83690; 84703; 85025; 87086; 99285; J1885; J2270

== ENCOUNTER → 2020-03-26 | Outpatient (CLI) | payer OTHER, MEDICAID ==
[~2020-03-26] MED LIST changes: +CEFU250T66 PO; +HYDR-3240 PO; +KETO10TA PO; +ONDA4TAB7 PO; +PHEN-418 PO
== END | disposition home or self-care (01) ==
LOC: RAD 11:22
PROVIDERS: ATTEND Urology
DX: N20.0 Calculus of kidney (principal)
CPT/HCPCS: 74018

== ENCOUNTER 2020-03-27 13:33 | Inpatient (IN) | payer OTHER, MEDICAID ==
[~2020-03-27] VITALS: Ht 165.1 cm; Wt 81.9 kg
[~2020-03-27 13:33] MED LIST changes: -CEFU250T66 PO; -HYDR-3240 PO; -KETO10TA PO; -ONDA4TAB7 PO; -PHEN-418 PO
[2020-03-27 14:15] VITALS: BP 106/68
[2020-03-27] MEDS ORDERED: morphine SULFATE 10 MG/ML, 1ML IVPush PRN (14:30)
[2020-03-27] MEDS ORDERED: OPIUM/BELLADONNA SUPP.RECT 16.2-30 MG PR PRN (14:30)
[2020-03-27] MEDS ORDERED: ONDANSETRON ODT 4 MG PO PRN (14:30)
[2020-03-27] MEDS: KETOROLAC 30 MG/1 ML IVPush SCH ×2 (14:52→21:16)
[2020-03-27] MEDS: D5%-0.45% NACL 1,000 ML IV SCH (14:52)
[2020-03-27] MEDS: OXYcodone/APAP 5/325MG TABLET PO PRN (16:26)
[2020-03-27 19:41] VITALS: BP 103/66
[2020-03-27] MEDS: DOCUSATE 100 MG CAPSULE PO SCH (21:16)
[2020-03-28 00:13] VITALS: BP 95/53
[2020-03-28] MEDS: KETOROLAC 30 MG/1 ML IVPush SCH ×3 (02:59→13:45)
[2020-03-28 05:54] LABS: BASOPHILS % (AUTO) 0 % (0-1); EOSINOPHILS % (AUTO) 0 % (1-7); LYMPHOCYTES % (AUTO) 12 % (22-44); MEAN CORPUSCULAR HEMOGLOBIN 29.6 pg (27.0-34.8); MEAN CORPUSCULAR HGB CONC 32.8 g/dL (32.4-35.8); MEAN PLATELET VOLUME 9.4 fL (7.4-10.4); MONOCYTES % (AUTO) 6 % (2-9); NEUTROPHILS % (AUTO) 82 % (42-75); PLATELET COUNT 257 x10^3/uL (130-400); RED BLOOD COUNT 4.82 x10^6/uL (3.82-5.3); RED CELL DISTRIBUTION WIDTH 13.3 % (9.6-15.2)
[2020-03-28 06:06] LABS: CHLORIDE 107 mmol/L (98-107)
[2020-03-28 06:18] LABS: MD SCAN
[2020-03-28 06:29] LABS: ANION GAP 6 mmol/L (5-15); CALCIUM 8.1 mg/dL (8.5-10.1); CREATININE 0.91 mg/dL (0.55-1.02)
[2020-03-28] MEDS ORDERED: FLU VACC QS2020-21(6MOS UP)/PF 60MCG/0.5 ML SYR IM ONE (06:30)
[2020-03-28 07:18] VITALS: BP 106/64
[2020-03-28] MEDS: DOCUSATE 100 MG CAPSULE PO SCH (08:17)
[2020-03-28] MEDS: D5%-0.45% NACL 1,000 ML IV SCH (09:13)
[2020-03-28] MEDS: OXYcodone/APAP 5/325MG TABLET PO PRN (12:29)
[2020-03-28 13:14] VITALS: BP 115/66
[2020-03-28] MEDS ORDERED: ONDA4TAB7 PO (14:09)
[2020-03-28] MEDS ORDERED: HYDR-3240 PO (14:09)
[2020-03-28] MEDS ORDERED: PHEN-418 PO (14:12)
[2020-03-28] MEDS ORDERED: CEFU250T66 PO (14:18)
[2020-03-28] MEDS ORDERED: KETO10TA PO (14:20)
== END 2020-03-28 15:15 | disposition home or self-care (01) | DRG 948 ==
LOC: 4NE 14:09 → DCLOUNGE 03-28 15:10
PROVIDERS: ADMIT Urology; ATTEND Urology
DX: G89.18 Other acute postprocedural pain (principal); Z80.3 Family history of malignant neoplasm of breast; Z82.3 Family history of stroke; D72.829 Elevated white blood cell count, unspecified; Z87.442 Personal history of urinary calculi; Z87.891 Personal history of nicotine dependence
CPT/HCPCS: 36415; 74018; 76770; 80048; 85025; 90686; G0378; J1885; J2270

== ENCOUNTER 2020-04-16 15:35 | Outpatient (CLI) | payer OTHER, MEDICAID ==
[~2020-04-16 15:35] MED LIST changes: +CEFU250T66 PO; +HYDR-3240 PO; +KETO10TA PO; +ONDA4TAB7 PO; +PHEN-418 PO
== END 2020-04-16 23:59 | disposition home or self-care (01) ==
LOC: RAD 15:35
PROVIDERS: ATTEND Urology
DX: N20.0 Calculus of kidney (principal)
CPT/HCPCS: 74018